=== PATIENT | female | born 1990 | race Caucasian/White ===

== ENCOUNTER 2021-11-24 05:25 | Day surgery (SDC) | payer MEDICAID ==
[~2021-11-24] VITALS: Ht 157.5 cm; Wt 112.0 kg
[2021-11-24] MEDS ORDERED: METOCLOPRAMIDE HCL 10 MG/2 ML VIAL ONE (08:49)
[2021-11-24] MEDS ORDERED: ROCURONIUM BROMIDE 10 MG/ML (ZEMURON) ONE (08:49)
[2021-11-24] MEDS ORDERED: MIDAZOLAM HCL 2 MG/2 ML VIAL (VERSED) ONE (08:49)
[2021-11-24] MEDS ORDERED: LR 1,000 ML IV.SOLN IV ONE (08:49)
[2021-11-24] MEDS ORDERED: SUGAMMADEX SODIUM 200 MG/2 ML VIAL IV ONE (08:49)
[2021-11-24] MEDS ORDERED: DEXAMETHASONE SOD PHOSPHATE 4 MG/ML VIAL ONE (08:49)
[2021-11-24] MEDS ORDERED: SEVOFLURANE 15 MIN GAS INH ONE (08:49)
[2021-11-24] MEDS ORDERED: ONDANSETRON HCL 4 MG/2 ML VIAL ONE (08:49)
[2021-11-24] MEDS ORDERED: fentaNYL CITRATE/PF 100 MCG/2 ML AMP ONE (08:49)
[2021-11-24] MEDS ORDERED: PROPOFOL 200MG/ 20ML VIAL (DIPRIVAN) IV ONE (08:49)
[2021-11-24] MEDS ORDERED: BUPIVACAINE /EPINEPHRINE/PF 0.5% 30 ML VIAL INJ ONE (08:49)
[2021-11-24] MEDS ORDERED: NS IRRIG SOLN 1000 ML IR ONE (08:49)
[2021-11-24] MEDS ORDERED: ACETAMINOPHEN I.V. 1000 MG 100 ML IV ONE ×3 (10:10→10:30)
[2021-11-24] MEDS ORDERED: ONDANSETRON HCL 4 MG/2 ML VIAL IVP PRN ×2 (10:15→10:30)
[2021-11-24] MEDS ORDERED: MEPERIDINE HCL/PF 25 MG/ML DISP.SYRIN IVP PRN (10:15)
[2021-11-24] MEDS ORDERED: fentaNYL CITRATE/PF 100 MCG/2 ML AMP IVP ONE ×2 (10:15→10:35)
[2021-11-24] MEDS ORDERED: METOCLOPRAMIDE HCL 10 MG/2 ML VIAL IVP PRN (10:15)
[2021-11-24] MEDS ORDERED: ONDANSETRON 4 MG ODT TAB PO PRN (10:30)
[2021-11-24] MEDS ORDERED: HYDROcodone/ACETAMIN 5-325 MG TAB (NORCO/ VICODIN) PO PRN (10:30)
[2021-11-24 10:55] VITALS: BP_SYST 120
== END 2021-11-24 12:00 | disposition home or self-care (01) ==
LOC: SDS 05:25 → SMU 05:25 → SDS 12:00
PROVIDERS: ATTEND Otolaryngology
DX: J35.01 Chronic tonsillitis (principal); E66.01 Morbid (severe) obesity due to excess calories; G47.33 Obstructive sleep apnea (adult) (pediatric); Z79.899 Other long term (current) drug therapy; Z20.822 Contact with and (suspected) exposure to COVID-19
CPT/HCPCS: 36415; 42826; 88304; U0003; J3490 ×2; J1100; J2765; J3465; J2405; J2704; J3010; J7120; J0131